=== PATIENT | male | born 1975 | race American Indian/Alaskan Native ===

== ENCOUNTER 2020-03-26 18:05 | Emergency (ER) | payer SELFPAY ==
[2020-03-26] MEDS ORDERED: ACETAMINOPHEN 500 MG TAB PO ONE (18:26)
[2020-03-26] MEDS ORDERED: ALUM-MAG HYDROXIDE-SIMETHICONE 200-200-20MG/5ML ORAL LIQD 30 ML PO ONE (18:26)
[2020-03-26 18:35] VITALS: BP 125/85
--- NOTE | 2020-03-26 18:51 | XRay Report ---
CHEST 1 VIEW INDICATION / CLINICAL INFORMATION: Shortness of breath and nausea. Intermittent midsternal chest pain COMPARISON: None available. FINDINGS: SUPPORT DEVICES: None. HEART / MEDIASTINUM: No significant abnormality. LUNGS / PLEURA: No significant pulmonary or pleural abnormality.. No pneumothorax. ADDITIONAL FINDINGS: No significant additional findings. IMPRESSION: 1. No acute findings. Signer Name: Vic Crowe MD Signed: 03/26/2020 6:46 PM Workstation Name: [id number]
[2020-03-26 18:53] LABS: Hematocrit 33.4 % (35.5-45.6); Hemoglobin 11.1 gm/dl (11.8-15.2); Mean Corpuscular HGB Conc 33 % (32-34); Mean Corpuscular Volume 83 fl (84-94); Platelet Count 509 K/mm3 (140-440); Red Blood Count 4.02 M/mm3 (3.65-5.03)
[2020-03-26 18:57] LABS: Red Cell Distribution Width 21.7 % (13.2-15.2)
[2020-03-26 19:10] LABS: Blood Urea Nitrogen 7 mg/dL (9-20); Calcium 9.8 mg/dL (8.4-10.2); Hemolysis Index 15
--- NOTE | 2020-03-26 19:10 | Emergency Department Report ---
ED Chest Pain HPI - General Chief Complaint: Chest Pain Stated Complaint: CHEST PAIN PUI?: No Time Seen by Provider: 03/26/20 18:25 Source: patient, EMS Mode of arrival: Stretcher Limitations: No Limitations - History of Present Illness Initial Comments: 44 yo male without significant past medical hx who presents with pinching sharp chest pain central in location. Patient has been under a lot of stress. The chest pain occurred while in police custody. He admits to having a lot of anxiety. He denies depression or suicidal ideation. No history of hypertension diabetes dyslipidemia or heart disease. No family history of heart disease. MD Complaint: chest pain -: Gradual, This evening Onset: during rest Severity: mild Severity scale (0 -10): 1 Quality: sharp Consistency: now resolved Improves With: nothing Worsens With: nothing Treatments Prior to Arrival: aspirin Heart Score - HEART Score History: Slightly suspicious EKG: Normal Age: 45-65 Risk factors: No known risk factors Troponin: < normal limit HEART Score: 1 ED Review of Systems ROS: Stated complaint: CHEST PAIN Other details as noted in HPI Comment: All other systems reviewed and negative Constitutional: denies: fever, malaise Respiratory: denies: orthopnea, shortness of breath Cardiovascular: chest pain. denies: palpitations Psychiatric: anxiety. denies: depression, suicidal thoughts ED Past Medical Hx - Past Medical History Previous Medical History?: No - Surgical History Past Surgical History?: No - Family History Family history: no significant - Social History Smoking Status: Never Smoker Substance Use Type: Alcohol ED Physical Exam - General Limitations: No Limitations General appearance: alert, in no apparent distress - Head Head exam: Present: atraumatic, normocephalic - Eye Eye exam: Present: normal appearance - ENT ENT exam: Present: mucous membranes moist - Neck Neck exam: Present: normal inspection, full ROM - Respiratory Respiratory exam: Present: normal lung sounds bilaterally. Absent: respiratory distress, wheezes, rales, rhonchi - Cardiovascular Cardiovascular Exam: Present: regular rate, normal rhythm, normal heart sounds. Absent: systolic murmur, diastolic murmur, rubs, gallop - GI/Abdominal GI/Abdominal exam: Present: soft, normal bowel sounds. Absent: distended, tenderness, guarding, rebound - Rectal Rectal exam: Present: deferred - Extremities Exam Extremities exam: Present: normal inspection - Back Exam Back exam: Present: normal inspection - Neurological Exam Neurological exam: Present: alert, oriented X3 - Psychiatric Psychiatric exam: Present: normal affect, normal mood - Skin Skin exam: Present: warm, dry, intact, normal color. Absent: rash ED Course Vital Signs 03/26/20 03/26/20 18:31 18:45 Temperature 98.6 F Pulse Rate 91 H Respiratory 29 H 18 Rate Blood Pressure 125/85 Blood Pressure 125/85 [Right] O2 Sat by Pulse 100 Oximetry ED Medical Decision Making - Lab Data Result diagrams: 03/26/20 18:33 03/26/20 18:33 Laboratory Results - last 24 hr 03/26/20 03/26/20 03/26/20 18:33 18:33 20:25 WBC 5.4 RBC 4.02 Hgb 11.1 L Hct 33.4 L MCV 83 L MCH 28 MCHC 33 RDW 21.7 H Plt Count 509 H Baso % (Auto) Diamond Sizer Add Manual Diff Complete Total Counted 100 Seg Neuts % (Manual) 32.0 L Band Neutrophils % 0 Lymphocytes % (Manual) 56.0 H Reactive Lymphs % (Man) 0 Monocytes % (Manual) 6.0 Eosinophils % (Manual) 5.0 H Basophils % (Manual) 1.0 Metamyelocytes % 0 Myelocytes % 0 Promyelocytes % 0 Blast Cells % 0 Nucleated RBC % Not Reportable Seg Neutrophils # Man 1.7 L Band Neutrophils # 0.0 Lymphocytes # (Manual) 3.0 Abs React Lymphs (Man) 0.0 Monocytes # (Manual) 0.3 Eosinophils # (Manual) 0.3 Basophils # (Manual) 0.1 Metamyelocytes # 0.0 Myelocytes # 0.0 Promyelocytes # 0.0 Blast Cells # 0.0 WBC Morphology Not Reportable Hypersegmented Neuts Not Reportable Hyposegmented Neuts Not Reportable Hypogranular Neuts Not Reportable Smudge Cells Not Reportable Toxic Granulation Not Reportable Toxic Vacuolation Not Reportable Dohle Bodies Not Reportable Pelger-Huet Anomaly Not Reportable Blaine Rods Not Reportable Platelet Estimate Consistent w auto Clumped Platelets Not Reportable Plt Clumps, EDTA Not Reportable Large Platelets Not Reportable Giant Platelets Not Reportable Platelet Satelliting Not Reportable Plt Morphology Comment Not Reportable RBC Morphology Not Reportable Dimorphic RBCs Not Reportable Polychromasia Not Reportable Hypochromasia Not Reportable Poikilocytosis Not Reportable Anisocytosis Not Reportable Microcytosis Not Reportable Macrocytosis Not Reportable Spherocytes Not Reportable Pappenheimer Bodies Not Reportable Sickle Cells Not Reportable Target Cells Not Reportable Tear Drop Cells Not Reportable Ovalocytes Not Reportable Helmet Cells Not Reportable [place] Bodies Not Reportable [place] Rings Not Reportable Tere Cells Few Bite Cells Not Reportable Crenated Cell Few Elliptocytes Not Reportable Acanthocytes (Spur) Not Reportable Rouleaux Not Reportable Hemoglobin C Crystals Not Reportable Schistocytes Not Reportable Malaria parasites Not Reportable Tayo Bodies Not Reportable Hem Pathologist Commnt No Sodium 146 H Potassium 3.9 Chloride 104.3 Carbon Dioxide 21 L Anion Gap 25 BUN 7 L Creatinine 0.7 L Estimated GFR > 60 BUN/Creatinine Ratio 10 Glucose 87 Calcium 9.8 Troponin T < 0.010 < 0.010 - EKG Data -: EKG Interpreted by Or EKG shows normal: sinus rhythm, axis, QRS complexes, ST-T waves Rate: normal - EKG Data Interpretation: normal EKG - Radiology Data Radiology results: report reviewed CHEST 1 VIEW INDICATION / CLINICAL INFORMATION: Shortness of breath and nausea. Intermittent midsternal chest pain COMPARISON: None available. FINDINGS: SUPPORT DEVICES: None. HEART / MEDIASTINUM: No significant abnormality. LUNGS / PLEURA: No significant pulmonary or pleural abnormality.. No pneumothorax. ADDITIONAL FINDINGS: No significant additional findings. IMPRESSION: 1. No acute findings. - Medical Decision Making This is a healthy 44-year-old male who presents with sharp chest pain fleeting during stressful situation. I strongly suspect anxiety reaction. PERC negative for PE. EKG within normal limits without ischemic changes. No evidence of pericarditis according to EKG. Chest radiograph absent of signs indicating pneumonia or pneumothorax. Heart score 1. Cardiology follow-up is currently not indicated as it will be low yield without cardiovascular risk factors in the instance of atypical chest pain Troponin x 2 negative. Patient understands return to ER if symptoms recur. Critical care attestation.: If time is entered above; I have spent that time in minutes in the direct care of this critically ill patient, excluding procedure time. ED Disposition Clinical Impression: Chest pain Disposition: DC-01 TO HOME OR SELFCARE Is pt being admited?: No Does the pt Need Aspirin: No Condition: Stable Instructions: Chest Pain (ED) Referrals: PETE MUÑOZ MD [Staff Physician] - 3-5 Days
[2020-03-26 19:11] LABS: BUN/Creatinine Ratio 10
[2020-03-26 20:56] LABS: Total Cells Counted 100
[2020-03-26 20:57] LABS: Burr Cells Few; Crenated RBC Few; Platelet Estimate Consistent w Auto
[2020-03-26] MEDS ORDERED: ACETAMINOPHEN 325 MG TAB ONE (22:04)
[2020-03-26] MEDS ORDERED: ACETAMINOPHEN 325 MG TAB PO ONE (22:06)
== END 2020-03-26 22:11 | disposition home or self-care (01) ==
LOC: ED 18:05
DX: R07.9 Chest pain, unspecified (principal)
CPT/HCPCS: 36415; 71045; 80048; 84484; 85007; 85025; 93005

== ENCOUNTER 2022-04-09 12:40 | Emergency (ER) | payer SELFPAY ==
[2022-04-09 13:53] VITALS: BP 110/81
--- NOTE | 2022-04-09 13:55 | Event Note ---
ED Screening Note Date of service: 04/09/22 Time: 13:53 ED Screening Note: This initial assessment/diagnostic orders/clinical plan/treatment(s) is/are subject to change based on patients health status, clinical progression and re- assessment by fellow clinical providers in the ED. Further treatment and workup at subsequent clinical providers discretion. Patient/guardian urged not to elope from the ED as their condition may be serious if not clinically assessed and managed. Patient with calf pain gradually worsening for 2 months. Thinks it is due to lifting heavy boxes. No Hx DVT/PE or FH. No chest pain or dyspnea. Initial orders include: My Active Orders 04/09/22 13:52 D-Dimer Stat XR tibia fibula 2V LT Urgent
--- NOTE | 2022-04-09 14:26 | XRay Report ---
RIGHT TIBIA AND FIBULA 2 VIEWS INDICATION: calf pain. COMPARISON: None. IMPRESSION: No acute osseous or soft tissue abnormality. Signer Name: Mauricio Lou Jr, MD Signed: 04/09/2022 2:22 PM Workstation Name: [id number]
[2022-04-09] MEDS ORDERED: predniSONE 20 MG TAB PO ONE (15:56)
--- NOTE | 2022-04-09 15:56 | Emergency Department Report ---
ED Lower Extremity HPI - General Chief Complaint: Extremity Injury, Lower Stated Complaint: RT LEG PAIN Time Seen by Provider: 04/09/22 15:55 Source: patient Mode of arrival: Ambulatory Limitations: No Limitations - History of Present Illness Initial Comments: Patient is a 46-year-old male that comes to the emergency room with right foot pain for months. He states that this is because he works 2 jobs. He walks too much. 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 He states that is when the pain started. He has not taken anything at home for the pain. He does rub icy hot on it. He does not get relief from that. He is in flip-flops shoes. He denies any trauma to the foot. He has not seen a doctor prior to today. Patient is ambulatory to the ER in no acute distress. Denies any prescribed medications MD Complaint: other -: Gradual (Foot pain), month(s) Injury: Foot: Right Place: work Improves With: immobilization Worsens With: movement, other (Work) Context: other (No known trauma) - Related Data Previous Rx's Medication Instructions Recorded Last Taken Type predniSONE [Deltasone] 20 mg PO DAILY #5 tablet 04/09/22 Unknown Rx Allergies Allergy/AdvReac Type Severity Reaction Status Date / Time No Known Allergies Allergy Verified 04/09/22 12:46 ED Review of Systems ROS: Stated complaint: RT LEG PAIN Other details as noted in HPI Comment: All other systems reviewed and negative ED Past Medical Hx - Past Medical History Previous Medical History?: No - Surgical History Past Surgical History?: No - Family History Family history: no significant - Social History Smoking Status: Never Smoker Substance Use Type: Alcohol - Medications Home Medications: Home Medications Medication Instructions Recorded Confirmed Last Taken Type predniSONE [Deltasone] 20 mg PO DAILY #5 tablet 04/09/22 Unknown Rx ED Physical Exam - General Limitations: No Limitations General appearance: alert, in no apparent distress - Head Head exam: Present: atraumatic, normocephalic - Eye Eye exam: Present: normal appearance - ENT ENT exam: Present: mucous membranes moist - Neck Neck exam: Present: normal inspection - Respiratory Respiratory exam: Present: normal lung sounds bilaterally. Absent: respiratory distress - Cardiovascular Cardiovascular Exam: Present: regular rate, normal rhythm. Absent: systolic murmur, diastolic murmur, rubs, gallop - GI/Abdominal GI/Abdominal exam: Present: soft, normal bowel sounds - Rectal Rectal exam: Present: deferred - Extremities Exam Extremities exam: Present: normal inspection - Expanded Lower Extremity Exam Right Knee exam: Present: normal inspection Lower Leg exam: Present: normal inspection Ankle exam: Present: normal inspection Foot/Toe exam: Present: normal inspection Neuro vascular tendon exam: Present: no vascular compromise - Back Exam Back exam: Present: normal inspection - Neurological Exam Neurological exam: Present: alert, oriented X3 - Psychiatric Psychiatric exam: Present: normal affect, normal mood - Skin Skin exam: Present: warm, dry, intact, normal color. Absent: rash ED Course Vital Signs 04/09/22 04/09/22 12:40 13:51 Temperature 97.8 F 98.5 F Pulse Rate 96 H 96 H Respiratory 18 16 Rate Blood Pressure 118/86 110/81 [Left] O2 Sat by Pulse 99 Oximetry ED Lower Extremity MDM - Radiology Data Radiology results: report reviewed, image reviewed NAP - Medical Decision Making Imaging noted as ordered by JAYLENE in triage. Patient had a D-dimer ordered in triage. He has no tachycardia or hypoxia. He has no chest pain or shortness of breath. He is nonobese. He has no risk factors for DVT or PE. Patient's foot is warm. He has +2 DP and PT pulses. He has full range of motion of the foot ankle and knee. Patient is nonobese, he has no swelling. Negative Homans' sign. Achilles is intact Patient has indicated that is the bottom of his foot that hurts that radiates up his leg. Have given him a dose of prednisone. Patient was given prednisone for his discomfort. Have educated the patient on follow-up with PCP and/or orthopedics. Have given him appropriate referrals. Patient being discharged home with discharge plan of care including diet, activity, medications and follow-up. He verbalizes understanding of plan of care - Differential Diagnosis SOFT TISSUE INJURY Critical care attestation.: If time is entered above; I have spent that time in minutes in the direct care of this critically ill patient, excluding procedure time. ED Disposition Clinical Impression: Foot pain Disposition: HOME / SELF CARE / HOMELESS Is pt being admited?: No Does the pt Need Aspirin: No Condition: Stable Instructions: Foot Pain Additional Instructions: MED ORDERED TODAY Motrin and Tylenol can also be used, these are [id number] Stay well-hydrated with water Diet and activity as tolerated Follow-up with PCP and orthopedic doctor. Have given you referrals below. Prescriptions: predniSONE [Deltasone] 20 mg PO DAILY #5 tablet Referrals: KARINA ESPINOZA MD [Staff Physician] - 3-5 Days PETE MUÑOZ MD [Staff Physician] - 3-5 Days Forms: Work/School Release Form(ED) Time of Disposition: 15:58
== END 2022-04-09 16:35 | disposition home or self-care (01) ==
LOC: ED 12:40
DX: M79.671 Pain in right foot (principal); F10.20 Alcohol dependence, uncomplicated
CPT/HCPCS: 36415; 85379; 99284